=== PATIENT | male | born 1950 | race Caucasian/White ===

== ENCOUNTER 2022-04-19 12:46 | Day surgery (SDC) | payer MEDICARE, OTHER, SELFPAY ==
--- NOTE | 2022-04-19 | PATH_ITS ---
[facility] Accession Number: [id number] No. of containers..01 Tissue . 01 Material submitted: . colon - COLON POLYPS . 01 Diagnosis: Colon, Polyps, Biopsies: Tubular adenomas. MRV 04/23/2022 1316 Local . 01 Electronically signed: . Jennie Hutchinson MD, Pathologist NPI- [id number] . 01 Gross description: . COLON POLYPS: Received in formalin are 2 fragment(s) of dubois, soft tissue measuring 0.1 x 0.1 x 0.1 cm to 0.3 x 0.2 x 0.2 cm submitted entirely in 1 cassette(s) /DWAIN 04/20/2022 1858 Local . 01 Pathologist provided ICD-10: D12.6 . 01 CPT . 561262 Specimen Comment: A courtesy copy of this report has been sent to [phone], [phone] Specimen Comment: [id number] Performed at: 01 [facility] [address] [place] [address] [address], [place], [place] [id number] MD Cody Mayo MD Phone: [phone]
[2022-04-19 13:44] VITALS: BMI 32.1
--- NOTE | 2022-04-19 13:51 | PM.HP.1 ---
History of Present Illness History of Present Illness Date Patient Seen: 04/19/22 Time Patient Seen: 13:51 Chief complaint: SDC Narrative: Presents for colon cancer screening. Patient states that the last time this was done 10 years ago at [facility] (with me) no sedation was used and he did well. Meds Home Medications and Allergies Home Medications Medication Instructions Recorded Confirmed Type allopurinol 300 mg tablet 300 mg PO QDAY ##0 06/06/17 04/19/22 History atorvastatin 80 mg tablet (Lipitor) 80 mg PO QAM ##0 06/06/17 04/19/22 History lisinopril 20 mg tablet 10 mg PO QDAY ##0 06/06/17 04/19/22 History albuterol sulfate 90 mcg/actuation 2 puff INH Q6H PRN Wheezing ##0 06/10/17 04/19/22 History aerosol inhaler (Ventolin HFA) aspirin 81 mg tablet,delayed 81 mg PO QDAY ##0 06/10/17 04/19/22 History release budesonide 180 mcg/actuation 1 inh inhalation BID 04/19/22 04/19/22 History breath activated powder inhaler (Pulmicort Flexhaler) calcium carbonate 333 mg-magnesium 1 tab PO 3XD 04/19/22 04/19/22 History oxide 133 mg-zinc sulf 5 mg tablet latanoprost 0.005 % eye drops 1 drp ophthalmic (eye) BEDTIME 04/19/22 04/19/22 History montelukast 10 mg tablet 10 mg PO DAILY 04/19/22 04/19/22 History multivitamin with iron-mineral 1 tab PO DAILY 04/19/22 04/19/22 History Allergies Allergy/AdvReac Type Severity Reaction Status Date / Time No Known Drug Allergies Allergy Verified 04/19/22 13:43 Review of Systems Review of Systems ROS: Yes All systems reviewed with the patient and are negative except as otherwise documented Exam Const General: cooperative HENMT Head: normal to inspection Eyes General: appearance normal, both eyes and all related structures Neck Neck: normal visual inspection Chest Chest: normal inspection of the chest Resp Effort & Inspection: normal respiratory effort Cardio Rate: regular rate GI Inspection: normal to inspection Skin General: no rashes or lesions noted Neuro General: patient alert and patient awake Extrem General: normal to inspection and no pedal edema Psych Appearance: grossly normal Assessment & Plan Assessment & Plan narrative: 71-year-old indicated for colon cancer screening. Colonoscopy is pursued today. At the patient's request this will be an un sedated exam. Time Spent With Patient Critical Care time: I spent a total of [] minutes of critical care time on this patient's care today; this time is exclusive of procedural time.
--- NOTE | 2022-04-19 13:52 | PM.PREOP ---
Pre-operative Note Interval Note History & Physical reviewed/Exam performed by Physician: Yes Changes to H&P: No ASA Class (for procedural sedation): II
[2022-04-19 14:01] VITALS: BP 132/102; PULSE 92; RESP 16; TEMP 36.3; O2SAT 98
[2022-04-19] MEDS: LACTATED RINGERS 1,000 ML 84 ML IV (14:03)
--- NOTE | 2022-04-19 15:14 | PM.OP.COLON ---
Operative Date/Time/Diagnoses Date of procedure: 04/19/22 Time of procedure: 15:14 Pre-op diagnosis: Colon cancer screening Post-op diagnosis: same Procedure & Clinicians Study performed: Colonoscopy with cold snare polypectomy and cold forceps polypectomy Same procedure as scheduled: Yes Indications: Colon cancer screening Surgeon: J Luis Valverde Procedure Notes SCOAP/Timeout: Done Procedure in detail: After the risks and benefits were explained, written and verbal informed consent was obtained. The patient was brought into the procedure room and placed into the left lateral decubitus position. No sedation was applied. Digital rectal examination was accomplished. The scope was introduced into the patient and advanced under direct visualization to the cecum as identified by the appendiceal orifice and ileocecal valve. The scope was slowly withdrawn to carefully examine the mucosa for any defects or lesions. Comprehensive imaging was accomplished throughout the rectum including the dentate line. The colon was decompressed, the scope was then removed from the patient who tolerated the procedure well. Adult colonoscope Bowel prep fair; with copious irrigation this was rendered adequate. Scope withdrawal time: 17 minutes Sedation minutes: 0 Complications: none Impression: There was some very scant early diverticulosis in the left colon. There were a few subtle erosions suggestive of prep artifact. In the near cecum there was a diminutive polyp removed with cold forceps. In the ascending colon there was a 5-6 mm polyp removed with cold snare. These were submitted together as ?colon polyps?. Within the limitations of bowel prep, no significant pathology was appreciated. The patient had evidence of grade 2 to grade 3 nonbleeding nonthrombosed hemorrhoids. Endoscopic diagnosis 1. Grade 2-3 hemorrhoids 2. Minimal scant sigmoid diverticulosis 3. Diminutive right colon polyps Post-procedure Plan for aftercare: 1. Await histopathology. 2. Repeat colonoscopy will likely be suggested for around 5 years from now if adenomatous features are confirmed. Disposition: PACU
[2022-04-19 15:18] VITALS: BP 167/98; PULSE 80; RESP 16; TEMP 36.2; O2SAT 99
--- NOTE | 2022-04-19 15:25 | SUR.PHASEII ---
no sedation, dressed self, ambulated to vehicle. VSS
== END 2022-04-19 15:30 | disposition home or self-care (01) ==
PROVIDERS: PCP Physician Assistant; Referring Provider Internal Medicine Gastroenterology; Visit Provider Internal Medicine Gastroenterology
PROC: 0DJD8ZZ Inspection of Lower Intestinal Tract, Via Natural or Artificial Opening Endoscopic (ICD-10-PCS; CPT 45378; principal; 2022-04-19 14:30)
DX: Z12.11 Encounter for screening for malignant neoplasm of colon (principal); K64.1 Second degree hemorrhoids; K57.30 Diverticulosis of large intestine without perforation or abscess without bleeding; D12.6 Benign neoplasm of colon, unspecified
CPT/HCPCS: 45385; 45380